=== PATIENT | male | born 1980 | race American Indian/Alaskan Native ===

== ENCOUNTER 2016-12-31 10:08 | Day surgery (SDC) | payer MEDICARE ==
--- NOTE | 2016-12-31 09:21 | Short Stay Summary ---
<KOKO DOYLE - Last Filed: 12/31/16 09:15> Short Stay Documentation Date of service: 12/31/16 Narrative H&P: This pt is a 36 yo AAM with esrd disease on HD that presents with a thrombosed LUE Black avf. Pt s/p recent fistlagram with subsequent acces thrombosis. He had a temp catheter placed at an outside facility, was dialyzed, then d/c'd. The catheter was removed prior to d/c. He f/u now for attempted declot vs PC placement prior to new Access creation in the future. - History Past Medical History: diabetes, dialysis, ESRD, hypertension Past Surgical History: Other (Right hip and knee surgery, eye surgery, kidney bx , PC placement, the above stated LUE Black avf created 12/01/13 with a post-op thrombectomy later that day, recent fistulagram, recent temp vc placement.) Social history: , lives with family - Allergies and Medications Current Medications: Allergies No Known Allergies Allergy (Verified 07/06/14 08:35) Home Medications Medication Instructions Recorded Confirmed Last Taken Type Labetalol [Normodyne TAB] 300 mg PO TID #90 tablet 09/19/13 06/20/15 06/20/15 Rx Losartan [Cozaar] 25 mg PO DAILY 12/01/13 06/20/15 06/20/15 History Sevelamer HCl [Renagel] 800 mg PO TIDAC 07/06/14 06/20/15 06/20/15 History Sodium Bicarbonate 650 mg PO BID 07/06/14 06/20/15 06/20/15 History Vit B Cplx #11/FA/C/Biot/Zn Ox 1 each PO DAILY 07/06/14 06/20/15 06/20/15 History [Dialyvite with Zinc Tablet] cloNIDine [Catapres] 0.2 mg PO TID 07/06/14 06/20/15 06/20/15 History Ondansetron [Zofran TAB] 4 mg PO TID PRN 06/20/15 06/20/15 Unknown History Pantoprazole [Protonix TAB] 40 mg PO DAILY 06/20/15 06/20/15 06/20/15 History amLODIPine [Norvasc] 5 mg PO QDAY 07/06/20/15 06/20/15 History glipiZIDE [Glipizide] 10 mg PO DAILY 06/20/15 06/20/15 06/20/15 History - Disposition Condition at discharge: Good Disposition: DISCHARGED TO HOME OR SELFCARE Short Stay Discharge Plan Follow up with: PARTH DANIELSON MD [Primary Care Provider] - 7 Days <JYOTI CHEATHAM - Last Filed: 12/31/16 13:42> Short Stay Documentation - Allergies and Medications Current Medications: Allergies No Known Allergies Allergy (Verified 07/06/14 08:35) Home Medications Medication Instructions Recorded Confirmed Last Taken Type Losartan [Cozaar] 25 mg PO DAILY 12/01/13 12/31/16 12/30/16 History Sevelamer HCl [Renagel] 800 mg PO TIDAC 07/06/14 12/31/16 12/30/16 History Sodium Bicarbonate 650 mg PO BID 07/06/14 12/31/16 12/30/16 History Vit B Cplx #11/FA/C/Biot/Zn Ox 1 each PO DAILY 07/06/14 12/31/16 12/30/16 History [Dialyvite with Zinc Tablet] Ondansetron [Zofran TAB] 4 mg PO TID PRN 06/20/15 12/31/16 Unknown History Pantoprazole [Protonix TAB] 40 mg PO DAILY 06/20/15 12/31/16 12/30/16 History amLODIPine [Norvasc] 5 mg PO QDAY 06/20/15 12/31/16 12/30/16 History glipiZIDE [Glipizide] 10 mg PO DAILY 06/20/15 12/31/16 12/30/16 History Metoprolol Tartrate [Lopressor] 50 mg PO BID 12/31/16 12/31/16 12/30/16 History Active Medications Cefazolin Sodium (Ancef/Sterile Water 2 Gm/20 Ml) 2 gm in 20 mls @ 80 mls/hr IV PREOP NR PRN Reason: Protocol Stop: 12/31/16 23:59 Last Admin: 12/31/16 12:20 Dose: 20 mls - Brief post op/procedure progress note Date of procedure: 12/31/16 Pre-op diagnosis: complications of dialysis access Post-op diagnosis: same Procedure: 1. Access left AV fistula 7 Kinyarwanda sheath venous 2. Access left AV fistulas 6 Kinyarwanda sheath arterial 3. Fistulogram with central venogram 4. Percutaneous mechanical thrombectomy AV fistula with Trertolla and AngioJet catheter 5. Angioplasty of venous outflow of left AV fistula 7 x 200 balloon 6. Angioplasty of arterial inflow of left AV fistula with 5 x 60 balloon 7. Radiologic supervision with interpretation Anesthesia: local, other (IV sedation) Surgeon: JYOTI CHEATHAM Estimated blood loss: minimal Pathology: none Condition: stable Short Stay Discharge Plan Activity: no restrictions Wound: open to air, keep clean and dry
[2016-12-31] MEDS ORDERED: ANCEF/STERILE WATER 2 GM/20 ML 2 GM/20 ML SYRINGE IV NR (11:00)
[2016-12-31 11:05] LABS: Hematocrit 32.8 % (35.5-45.6); Hemoglobin 10.8 gm/dl (11.8-15.2); Mean Corpuscular HGB Conc 33 % (32-34); Mean Corpuscular Hemoglobin 30 pg (28-32); Mean Corpuscular Volume 90 fl (84-94); Platelet Count 252 K/mm3 (140-440); Red Blood Count 3.63 M/mm3 (3.65-5.03); Red Cell Distribution Width 14.1 % (13.2-15.2); White Blood Count 10.8 K/mm3 (4.5-11.0)
[2016-12-31 11:15] LABS: INR 0.92 (0.87-1.13)
[2016-12-31 11:16] LABS: Partial Thromboplastin Time 32.5 Sec. (24.2-36.6)
[2016-12-31 11:32] LABS: BUN/Creatinine Ratio 5.22; Calcium 9.3 mg/dL (8.4-10.2); Chloride 94.4 mmol/L (98-107)
[2016-12-31] MEDS ORDERED: NACL 0.9% 250ML 250 ML ONE (11:49)
[2016-12-31] MEDS ORDERED: HEPARIN/NS 5000 UNIT/500ML(CATH LAB) 1,000 ML IR ONE (11:50)
[2016-12-31] MEDS ORDERED: HEPARIN 10,000 UNITS/10 ML ONE ×2 (11:50→11:52)
[2016-12-31] MEDS ORDERED: ANCEF/STERILE WATER 2 GM/20 ML 2 GM/20 ML SYRINGE IV ONE (11:52)
[2016-12-31] MEDS: XYLOCAINE 2% INFILTRATI ONE ×3 (12:24→13:06)
[2016-12-31] MEDS: VERSED ONE ×3 (12:24→12:48)
[2016-12-31] MEDS: SUBLIMAZE ONE ×5 (12:24→13:20)
[2016-12-31] MEDS ORDERED: HEPARIN/NS 5000 UNIT/500ML(CATH LAB) 500 ML IR ONE (12:37)
[2016-12-31] MEDS ORDERED: CATHFLO ONE ×2 (12:52→12:55)
[2016-12-31] MEDS ORDERED: WATER FOR INJ (PF) 10 ML ONE (12:53)
--- NOTE | 2016-12-31 13:51 | Operative Report ---
Operative Report Operative Report: Date of Procedure: 12/31/2016 Pre-operative Diagnosis: Complications of dialysis access Post-operative Diagnosis: Same Procedure(s): 1. Access left AV fistula 7 Faroese sheath venous 2. Access left AV fistulas 6 Faroese sheath arterial 3. Fistulogram with central venogram 4. Percutaneous mechanical thrombectomy AV fistula with Trertolla and AngioJet catheter 5. Angioplasty of venous outflow of left AV fistula 7 x 200 balloon 6. Angioplasty of arterial inflow of left AV fistula with 5 x 60 balloon 7. Radiologic supervision with interpretation Surgeon: Moris Andrade M.D. Metalizing Machine Operator: None Anesthesia: Local and IV sedation EBL: Minimal Counts: Correct Complications: None Condition: Stable Findings: Left Black fistula thrombosed with 50% stenosis of the venous outflow at the elbow and occlusion of the cephalic vein above the elbow. There was approximately 80% stenosis of the arterial inflow. After intervention the venous outflow including the cephalic vein, above the elbow, were widely patent. The arterial inflow was widely patent and the patient had an excellent thrill. Specimen: None Indication: The patient is a 36-year-old male with a history of end-stage renal disease who presented with thrombosis of his left arm Black fistula. He is scheduled for fistulogram and possible thrombectomy. He was given the risks, benefits, and alternative procedures and consented to the procedure. Description of Procedure: The patient was brought to the maintenance shop laborer and laid in supine position. After he was adequately sedated his left arm was prepped and draped in normal sterile fashion. After anesthetizing the skin and a small stab incision was made and a micropuncture technique was used to access the fistula towards the venous outflow. A 7 Faroese sheath was then placed by Seldinger technique. Fistulogram demonstrated that the fistula was completely thrombosed in the forearm however the basilic vein was patent with approximately 50% stenosis at the elbow and just above. The cephalic vein just above the elbow was occluded the remainder of the central venous system was widely patent. The vertebral catheter and V18 wire were used to traverse the occluded fistula and an AngioJet catheter was used to perform percutaneous mechanical thrombectomy of the fistula. Despite using AngioJet there was a significant amount of residual thrombus that was unable to be aspirated so I injected 8 mg of TPA directly into the thrombus and then used the Trertolla device to morcellate the thrombus. I was eventually able to aspirate all residual thrombus, within the venous outflow, using a combination of the AngioJet catheter and a 6 Faroese guide catheter. I then performed balloon angioplasties of the areas of stenosis with a result of less than 10% residual stenosis. Additionally want using the AngioJet catheter, I inadvertently advanced AngioJet catheter into the cephalic vein and was able to aspirate thrombus from the vein resulted in a wildly patent cephalic vein. I then anesthetized the skin and used micropuncture technique to access the fistula towards arterial inflow. A fistulogram with arterial level distally was occluded and there was approximately 80% stenosis of the portion of the fistula just proximal to the arterial anastomosis. I was able to manipulate a vertebral catheter and Glidewire through the occlusion and into the proximal radial artery. I initially tried to use AngioJet to aspirate the Thrombus without success. I advanced an [id number] Oleg was able to pull thrombus back into the fistula and aspirated with the AngioJet catheter. I then performed balloon angioplasty of the areas of stenosis with a 5 x 60 balloon and at this point the fistula developed a thrill. Final fistulogram demonstrated the fistula was now widely patent without any residual stenosis or thrombus. All balloons and wires were removed and a 4-0 chromic simple pursestring fashion were used to close entry site. The entry sites were then dressed with Dermabond. The patient tolerated the procedure well. All sponge, needle, and estimate counts were correct. The patient was taken to the recovery area in stable condition.
[2016-12-31 14:50] VITALS: BP 154/97
--- NOTE | 2017-01-01 07:49 | Vascular Lab Report ---
MISCELLANEOUS VESSEL IDENTIFICATION: The arteriovenous access was identified in the left forearm and under real-time ultrasound guidance was cannulated. IMPRESSION: Successful ultrasound guided cannulation of the arteriovenous access site.
== END 2016-12-31 15:22 | disposition home or self-care (01) ==
LOC: OPU 10:08
PROVIDERS: ATTEND Surgery Vascular Surgery
DX: T82.868A Thrombosis due to vascular prosthetic devices, implants and grafts, initial encounter (principal); E11.22 Type 2 diabetes mellitus with diabetic chronic kidney disease; I12.0 Hypertensive chronic kidney disease with stage 5 chronic kidney disease or end stage renal disease; N18.6 End stage renal disease; Z99.2 Dependence on renal dialysis; Y83.2 Surgical operation with anastomosis, bypass or graft as the cause of abnormal reaction of the patient, or of later complication, without mention of misadventure at the time of the procedure
CPT/HCPCS: 36415; 36905; 76937; 80048; 85027; 85610; 85730; C1725; C1751; C1757; C1769; C1887; C1894; J0690; J1644; J2250; J2997; J3010; J7050; Q9967